=== PATIENT | female | born 1980 | race Caucasian/White ===

== ENCOUNTER 2017-09-11 13:50 | Emergency (ER) | payer SELFPAY ==
[2017-09-11] MEDS ORDERED: hydrOXYzine 25 MG TAB ONE (14:32)
[2017-09-11] MEDS ORDERED: Famotidine 20 MG TAB ONE (14:32)
[2017-09-11] MEDS ORDERED: Dexamethasone 10 MG/ML VIAL ONE (14:32)
== END 2017-09-11 14:35 | disposition home or self-care (01) ==
LOC: ERS 13:50
DX: T63.481A Toxic effect of venom of other arthropod, accidental (unintentional), initial encounter (principal)
CPT/HCPCS: 99282; J1100